=== PATIENT | male | born 1965 | race Caucasian/White ===

== ENCOUNTER 2017-05-29 12:27 | Emergency (ER) | payer BC, SELFPAY ==
[~2017-05-29 12:27] MED LIST: Iopamidol 370 76% 100 ML VIAL ONE
[2017-05-29] MEDS ORDERED: Fentanyl 100 MCG/2 ML VIAL ONE (12:49)
[2017-05-29] MEDS ORDERED: Sodium Chloride 0.9% 1,000 ML ONE (12:49)
[2017-05-29 13:36] LABS: #Basophils 0.1 thou/uL (0.0-0.2); MDiff Complete? YES; RBC Distribution Width 11.5 % (11.5-14.5)
[2017-05-29 13:37] LABS: CKMB 0.3 ng/mL (0-6.6)
[2017-05-29 13:53] LABS: White Blood Cell (WBC) Count 12.1 thou/uL (4.8-10.8)
[2017-05-29 13:54] LABS: Hemoglobin 15.6 g/dL (14.0-18.0); Mean Corpuscular Hemoglobin 33.1 pg (27.0-31.0); Mean Corpuscular Volume 98.4 fl (80.0-94.0)
[2017-05-29 13:55] LABS: %Lymphocytes 6.8 % (21.0-51.0); %Neutrophils 88.1 % (42.0-75.0); Mean Corpuscular HGB CONC 33.7 g/dL (32.0-36.0); Mean Platelet Volume 6.5 fL (7.4-10.4); Platelet Count 210 thou/uL (130-400)
[2017-05-29 13:56] LABS: #Lymphocytes 0.8 thou/uL (1.20-3.40); #Monocytes 0.5 thou/uL (0.11-0.59); #Neutrophils 10.6 thou/uL (1.40-6.50); %Basophils 0.6 % (0.0-1.0); %Eosinophils 0.7 % (0.0-10.0); %Monocytes 4.4 % (0.0-10.0)
[2017-05-29 13:57] LABS: PLT Morphology Comment Appears Adequate
[2017-05-29 14:09] LABS: Potassium 3.8 mmol/L (3.5-5.1); Sodium 137 mmol/L (136-145)
[2017-05-29 14:10] LABS: ALT (SGPT) 11 U/L (8-55); AST (SGOT) 14 U/L (5-34); Albumin 4.1 g/dL (3.5-5.0); Alkaline Phosphatase 59 U/L (40-150); Anion Gap 17 mmol/L (10-20); BUN (Urea Nitrogen) 15 mg/dL (8.4-25.7); Bilirubin, Total 0.8 mg/dL (0.2-1.2); Calc. Creatinine Clearance 0 mL/min (70-130); Calcium 9.5 mg/dL (7.8-10.44); Carbon Dioxide 15 mmol/L (22-29); Chloride 109 mmol/L (98-107); Estimated GFR-MDRD 76; Glucose 153 mg/dL (70-105); Protein, Total 7.1 g/dL (6.0-8.3)
--- NOTE | 2017-05-29 16:01 | CT ---
ABDOMEN AND PELVIS CT WITH CONTRAST: Date: 05/29/17 INDICATION: Left-sided abdominal pain. No prior comparison. FINDINGS: There is evidence of prior cholecystectomy. No acute abnormality of the liver or spleen. Discrete co ntrast media is seen within nondilated bilateral urinary collection systems. No evidence of adrenal mass. Moderate distention of the urinary bladder. There is prominent retained fecal material through out the colon. The rectosigmoid colon is distended with impacted with material, with a slight wall prominence and pericolonic haziness to indicate a mild degree of fat stranding. No free air. No drainable fluid collection. Scattered vascular calcifications. The contrast opacified small bowel i s normal in caliber. Otherwise, no additional significant abnormalities. IMPRESSION: Prominent retained fecal material of the colon. This includes impacted fecal material, which produce s distention of the rectosigmoid colon, along with a mild degree of wall prominence and pericolonic fat stranding. Recommend clinical correlation to exclude entities such stercoral colitis. Additional details are as described above. POS: SACHI
== END 2017-05-29 18:12 | disposition home or self-care (01) ==
LOC: NAV ERS 12:27
DX: K56.41 Fecal impaction (principal); Z87.891 Personal history of nicotine dependence
CPT/HCPCS: 74177; 80053; 82553; 84484; 85025; 93005; 96361; 96365; 96375; 96376; J1170; J3010; J7050

== ENCOUNTER 2017-11-04 02:39 | Emergency (ER) | payer SELFPAY ==
[2017-11-04] MEDS ORDERED: Lorazepam 2 MG/ML VIAL ONE (03:38)
== END 2017-11-04 03:01 | disposition left against medical advice (07) ==
LOC: NAV ERS 02:39
DX: F41.9 Anxiety disorder, unspecified (principal); F14.10 Cocaine abuse, uncomplicated; F15.10 Other stimulant abuse, uncomplicated; Z87.891 Personal history of nicotine dependence
CPT/HCPCS: 93005; 94760; 96372; J2060

== ENCOUNTER 2017-11-15 18:39 | Emergency (ER) | payer SELFPAY ==
[2017-11-15] MEDS ORDERED: Lorazepam 2 MG/ML VIAL ONE (18:55)
== END 2017-11-15 20:20 | disposition home or self-care (01) ==
LOC: NAV ERS 18:39
DX: F41.9 Anxiety disorder, unspecified (principal); F15.10 Other stimulant abuse, uncomplicated; Z87.891 Personal history of nicotine dependence
CPT/HCPCS: 51701; 93005; 96374; J2060

== ENCOUNTER 2018-06-05 09:15 | Emergency (ER) | payer SELFPAY ==
[2018-06-05 10:07] LABS: #Basophils 0.1 thou/uL (0.0-0.2); #Eosinphils 0.1 thou/uL (0.0-0.7); #Monocytes 0.7 thou/uL (0.11-0.59); #Neutrophils 4.5 thou/uL (1.40-6.50); %Basophils 1.5 % (0.0-1.0); %Eosinophils 1.1 % (0.0-10.0); %Lymphocytes 27.4 % (21.0-51.0); %Monocytes 9.9 % (0.0-10.0); %Neutrophils 60.1 % (42.0-75.0); Hemoglobin 14.7 g/dL (14.0-18.0); Mean Corpuscular HGB CONC 35.4 g/dL (32.0-36.0); Mean Corpuscular Hemoglobin 32.5 pg (27.0-31.0); Mean Corpuscular Volume 91.9 fL (78.0-98.0); Platelet Count 165 thou/uL (130-400); RBC Distribution Width 11.5 % (11.5-14.5); Red Blood Cell (RBC) Count 4.51 mill/uL (4.70-6.10); White Blood Cell (WBC) Count 7.4 thou/uL (4.8-10.8)
[2018-06-05 10:20] LABS: CKMB 2.5 ng/mL (0-6.6); Troponin I 0.011 ng/mL (< 0.028)
[2018-06-05 10:21] LABS: ALT (SGPT) 15 U/L (8-55); AST (SGOT) 20 U/L (5-34); Acetaminophen Less than 6.0 mcg/mL (10.0-30.0); Albumin 4.5 g/dL (3.5-5.0); Alcohol Less than 10 mg/dL (Less than 10); Alkaline Phosphatase 75 U/L (40-150); Anion Gap 15 mmol/L (10-20); BUN (Urea Nitrogen) 16 mg/dL (8.4-25.7); Bilirubin, Total 1.4 mg/dL (0.2-1.2); CK (CPK) 486 U/L (30-200); Calc. Creatinine Clearance 0 mL/min (70-130); Calcium 9.9 mg/dL (7.8-10.44); Carbon Dioxide 22 mmol/L (22-29); Chloride 104 mmol/L (98-107); Estimated GFR-MDRD 78; Globulin 2.8 g/dL (2.4-3.5); Glucose 98 mg/dL (70-105); Magnesium 2.2 mg/dL (1.6-2.6); Protein, Total 7.3 g/dL (6.0-8.3); Salicylate Less than 8.0 mg/dL (15.0-30.0); Sodium 137 mmol/L (136-145)
[2018-06-05 11:29] LABS: Bilirubin Negative (Negative); Blood, Urine Trace (Negative); Clarity Clear (Clear); Glucose, Urine (Dipstick) Negative (Negative); Leukocyte Negative (Negative); Nitrite Negative (Negative); Protein, Urine (Dipstick) Negative (Neg-Trace); Specific Gravity, Urine 1.015 (1.005-1.030); Urobilinogen 0.2 mg/dL (0.2-1.0)
[2018-06-05 11:38] LABS: Amphetamine Not Detected (NotDetected); Barbiturates Screen Not Detected (NotDetected); Benzodiazepine Screen Detected (NotDetected); Cocaine Metabolite Screen Detected (NotDetected); Medtox Control Line Valid? VALID (VALID); Methadone Not Detected (NotDetected); Methamphetamine Not Detected (NotDetected); Opiate Screen Not Detected (NotDetected); Oxycodone Screen Not Detected (NotDetected); Phencyclidine (PCP) Not Detected (NotDetected); THC/Cannabinoid Screen Not Detected (NotDetected); Tricyclic Screen Not Detected (NotDetected)
[2018-06-05 11:39] LABS: RBC/HPF 0-3 HPF (0-3); WBC/HPF 0-3 HPF (0-3)
[2018-06-05] MEDS ORDERED: Sodium Chloride 0.9% 1,000 ML ONE (12:02)
--- NOTE | 2018-06-05 12:03 | RAD ---
2 VIEWS CHEST: Date: 06/05/18 PROVIDED CLINICAL HISTORY: Overdose. FINDINGS: Cardiac and mediastinal silhouette is within normal limits. Lungs appear clear. There is no pleural f luid or pneumothorax apparent. IMPRESSION: No evidence for an acute cardiopulmonary process. POS: SACHI
--- NOTE | 2018-06-05 12:05 | RAD ---
2 VIEWS ABDOMEN: Date: 06/05/18 PROVIDED CLINICAL HISTORY: Overdose. FINDINGS: The abdominal bowel gas pattern is nonspecific. Cholecystectomy clips overlie the right upper quadran t. No radiographically apparent urinary tract calculi with incomplete inclusion of the inferior pelvi s. IMPRESSION: Nonspecific bowel gas pattern. POS: ELISA
== END 2018-06-05 11:45 | disposition short-term general hospital (02) ==
LOC: NAV ERS 09:15
DX: T42.4X2A Poisoning by benzodiazepines, intentional self-harm, initial encounter (principal); I10 Essential (primary) hypertension; F41.9 Anxiety disorder, unspecified; F32.9 Major depressive disorder, single episode, unspecified; Z79.01 Long term (current) use of anticoagulants; Z79.899 Other long term (current) drug therapy
CPT/HCPCS: 71046; 74019; 80053; 80306; 80307; 81003; 81015; 82553; 83735; 84484; 85025; 93005; 96360; 96361; J7050